=== PATIENT | male | born 1985 | race Caucasian/White ===

== ENCOUNTER 2019-07-30 10:20 | Emergency (ER) | payer OTHER, SELFPAY ==
[2019-07-30 10:33] VITALS: BP 148/89; PULSE 83; RESP 16; TEMP 36.9; O2SAT 99
--- NOTE | 2019-07-30 10:55 | DI.RAD.S_ITS ---
PROCEDURE: XR FINGER LT MIN 2V INDICATIONS: crush injury to 3rd digit TECHNIQUE: AP hand, 2 views of the middle finger(s) acquired. COMPARISON: None. FINDINGS: Bones: No displaced fracture or dislocation is identified involving the osseous structures of the left 3rd digit. Soft tissues: No suspicious soft tissue calcifications. Soft tissue swelling about the distal aspect of the 3rd left digit is evident. IMPRESSION: No displaced fractures of the left 3rd digit. Dictated by: Ricky Braga M.D. on 07/30/2019 at 10:10 Approved by: Ricky Braga M.D. on 07/30/2019 at 10:10
[2019-07-30] MEDS: LIDO 1%/SOD BICARB 8.4% (10ML) 10 ML SYRINGE INJ (11:56)
[2019-07-30] MEDS: OXYCODONE/ACETAMINOPHEN 5/325 TABLET 1 TAB PO (11:56)
[2019-07-30] MEDS: BACITRACIN OINT 0.9 GM PCKT 1 APPLIC TOP (11:56)
[2019-07-30] MEDS: IBUPROFEN 400 MG TABLET PO (11:56)
--- NOTE | 2019-07-30 12:57 | ED_ITS ---
HPI - Extremity Injury (Upper) <LANA Emerson - Last Filed: 07/30/19 14:38> General Chief Complaint: Extremity Injury, Upper Stated Complaint: left middle index finger at work Time Seen by Provider: 07/30/19 11:00 Source: patient Mode of arrival: Ambulatory Limitations: no limitations History of Present Illness HPI narrative: This is a right dominant hand 34-year-old male, smoker, who presents to ED after his left 3rd finger pain and swelling after it was crushed by >100 Lbs metal off 12 ft above the ground when lost degree of the metal around at 9:30 a.m. There is no active bleeding at this time. Patient reports slightly numbness on affected finger tip. Patient reports pain increases with movement such as flexion of affected finger and when it is touched. Tetanus immunization was updated last and 5 years ago. Related Data Previous Rx's Medication Instructions Recorded hydrocodone-acetaminophen [[place]] 1 tab PO Q8H PRN #10 tab 07/30/19 Allergies Allergy/AdvReac Type Severity Reaction Status Date / Time No Known Drug Allergies Allergy Verified 07/30/19 10:36 Review of Systems <LANA Emerson - Last Filed: 07/30/19 14:38> Review of Systems Narrative: General: Denies fever, chills, fatigue, malaise, sweats. HEENT: Denies sinus pain, ear pain, sore throat, difficulty swallowing, dizziness. Respiratory: Denies dyspnea, cough, wheezing, hemoptysis, sputum. Cardiovascular: Denies chest pain, palpitations, orthopnea, edema. Gastrointestinal: Denies nausea, vomiting, abdominal pain, diarrhea, constipation, melena. : Denies dysuria, frequency, incontinence, hematuria, urinary retention. Musculoskeletal: See HPI Skin: Laceration to L 3rd finger. Neurologic: Denies weakness, headache, numbness, change in speech, confusion, seizures, incoordination. Psychiatric: No concerning psychosocial issues. 12-point review of systems is negative except for those stated above. Patient History <LANA Emerson - Last Filed: 07/30/19 14:38> Medical History No significant past medical history (Acute) Surgical History No pertinent past surgical history (Acute) Social History Smoking Status: Current every day smoker Smoking Status: Current every day smoker alcohol intake frequency: 0-2 drinks per day Substance Use Type: does not use Exam <LANA Emerson - Last Filed: 07/30/19 14:38> Narrative Exam Narrative: General appearance: well developed, well nourished, in no acute distress. Head: normocephalic, atraumatic, no scalp lesions, non-tender. Neck/Thyroid: neck supple, full range of motion, no visible masses or meningeal signs. No JVD, non-tender without lymphadenopathy. Skin: superfical about 1 cm laceration above the L 3rd distal phalange near nail bed. No active bleeding. Warm and dry and appropriate color for ethnicity. Heart: no clubbing, no cyanosis, no edema. Lungs: Breathing even and unlabored. No stridor. No accessory muscles used. Able to speak in full sentences. Chest: normal shape and expansion. Abdomen: non-obese, non-distended. Neurologic: alert and oriented. Cognitive exam, [employer] and PNS grossly intact on informal exam. Psych: good eye contact, normal affect. Initial Vital Signs Initial Vital Signs: Vital Signs Temperature 98.4 F 07/30/19 10:33 Pulse Rate 83 07/30/19 10:33 Respiratory Rate 16 07/30/19 10:33 Blood Pressure 148/89 H 07/30/19 10:33 Pulse Oximetry 99 07/30/19 10:33 Extrem Right upper extremity: hand (3rd distal finger) Details: abnormal to inspection, neuromotor exam normal Details: wrist extension normal, neurosensory exam normal, tendon exam normal, tenderness Location: of the 3rd digit Location: at the distal phalanx, vascular exam Details: radial pulse present, abnormal ROM of finger (able to flex and extend 3rd distal finger) Details: pain with active ROM and pain with passive ROM, swelling Location: of the 3rd digit Location: at the distal phalanx, laceration (superficial laceration near 3rd finger bed) and ecchymosis; no crepitus <Essie Cui DO - Last Filed: 07/30/19 18:23> Initial Vital Signs Initial Vital Signs: Vital Signs Temperature 98.4 F 07/30/19 10:33 Pulse Rate 83 07/30/19 10:33 Respiratory Rate 16 07/30/19 10:33 Blood Pressure 148/89 H 07/30/19 10:33 Pulse Oximetry 99 07/30/19 10:33 Procedures <LANA Emerson - Last Filed: 07/30/19 14:38> Laceration Repair Laceration 1: Site: upper extremity (3rd distal finger) Side (If applicable): left Size (cm): 1 Description: linear Local Anesthetic: lidocaine 1% and with bicarb Amount of anesthesia used (mL): 2 Skin layer closed with: steri-strips Orthopedic Splinting/Casting Injury #1: Side: left Upper Extremity Injury Location: finger Upper Extremity Immobilizer: aluminum form splint Post splinting vascular exam: intact Placed by: Nursing Scores <KAY EmersonP - Last Filed: 07/30/19 14:38> GCS Felicity coma scale eye opening: Spontaneous Felicity coma scale verbal response: Orientated Marcell coma scale motor response: Obey commands Marcell coma scale total score: 15 Course <LANA Emerson - Last Filed: 07/30/19 14:38> Orders Ordered: ED Orders 07/30/19 10:55 XR finger LT min 2V Stat Discontinued Medications Bacitracin (Bacitracin) 1 applic TOP NOW ONE Stop: 07/30/19 11:21 Last Admin: 07/30/19 11:56 Dose: 1 applic Documented by: TIFFANI Ibuprofen (Advil) 400 mg PO NOW ONE Stop: 07/30/19 11:21 Last Admin: 07/30/19 11:56 Dose: 400 mg Documented by: TIFFANI Lidocaine/Sodium Bicarbonate (Buffered Lidocaine 10 Ml Syr) 10 ml INJ NOW ONE Stop: 07/30/19 11:21 Last Admin: 07/30/19 11:56 Dose: 10 ml Documented by: TIFFANI Oxycodone/Acetaminophen (Percocet 5/325) 1 tab PO NOW ONE Stop: 07/30/19 11:21 Last Admin: 07/30/19 11:56 Dose: 1 tab Documented by: TIFFANI Vital Signs Vital signs: Vital Signs - 8 hr 07/30/19 10:33 07/30/19 13:14 Temperature 98.4 F Pulse Rate 83 81 Respiratory Rate 16 17 Blood Pressure 148/89 H Blood Pressure [Left Arm] 139/86 Pulse Oximetry 99 100 <DO ePr Sánchez Last Filed: 07/30/19 18:23> Orders Ordered: ED Orders 07/30/19 10:55 XR finger LT min 2V Stat Discontinued Medications Bacitracin (Bacitracin) 1 applic TOP NOW ONE Stop: 07/30/19 11:21 Last Admin: 07/30/19 11:56 Dose: 1 applic Documented by: TIFFANI Ibuprofen (Advil) 400 mg PO NOW ONE Stop: 07/30/19 11:21 Last Admin: 07/30/19 11:56 Dose: 400 mg Documented by: TIFFANI Lidocaine/Sodium Bicarbonate (Buffered Lidocaine 10 Ml Syr) 10 ml INJ NOW ONE Stop: 07/30/19 11:21 Last Admin: 07/30/19 11:56 Dose: 10 ml Documented by: TIFFANI Oxycodone/Acetaminophen (Percocet 5/325) 1 tab PO NOW ONE Stop: 07/30/19 11:21 Last Admin: 07/30/19 11:56 Dose: 1 tab Documented by: TIFFANI Vital Signs Vital signs: Vital Signs - 8 hr 07/30/19 10:33 07/30/19 13:14 Temperature 98.4 F Pulse Rate 83 81 Respiratory Rate 16 17 Blood Pressure 148/89 H Blood Pressure [Left Arm] 139/86 Pulse Oximetry 99 100 MDM - Extremity Injury (Upper) <LANA Emerson - Last Filed: 07/30/19 14:38> Differential Diagnosis Differential diagnosis: Likely other (Finger fracture, fingers contusion, laceration) Medical Records Attestation: I reviewed the patient's medical records. Imaging Data XR-Finger LT: Radiologist's Impression: [address] [address] XRay Report Signed Patient: Fabian Pena#: [id number] : 1985Acct:[id number] Age/Sex: 34 / MDate of Service: 07/30/19 Loc: ED Accession Number: [id number] Procedure: XR finger LT min 2V Ordering Provider: Essie Cui D.O. PROCEDURE: XR FINGER LT MIN 2V INDICATIONS: crush injury to 3rd digit TECHNIQUE: AP hand, 2 views of the middle finger(s) acquired. COMPARISON: None. FINDINGS: Bones: No displaced fracture or dislocation is identified involving the osseous structures of the left 3rd digit. Soft tissues: No suspicious soft tissue calcifications. Soft tissue swelling about the distal aspect of the 3rd left digit is evident. IMPRESSION: No displaced fractures of the left 3rd digit. Dictated by: Ricky Braga M.D. on 07/30/2019 at 10:10 Approved by: Ricky Braga M.D. on 07/30/2019 at 10:10 [facility] Narrative Medical decision making narrative: This is a 34-year-old male who injured non dominant, left 3rd distal finger from crush injury by a heavy metal. Patient was able to distinguish doll and sharp sensation. Patient was able to flex and extend his finger but with discomfort. Third distal phalange has moderate swelling and bruise. Trephination was attempted on affected finger but no blood returned from the nail. Patient's finger was numbed by digital block in anticipation of laceration repair. When the wound was cleaned well, laceration was not deep and limited to superficial and repaired by Steri-Strips. Please see procedure note for laceration repair with steri-strips. Affected finger was dressed and placed on finger splint to protect Steri-Strips. Patient advised RICE therapy. Discharged to home with few tabs of [place] for severe pain and patient advised to use Tylenol and or Motrin for baseline pain management. Return precautions were discussed with the patient including signs and symptoms for infection and advised to follow with PCP. L&I documentation has been completed and patient was provided with copy. Patient verbalized understanding and agrees with the treatment plan. Discharge Plan Departure Patient Disposition: Home Clinical Impression: Superficial laceration Contusion of finger, left Qualifiers: Encounter type: initial encounter Finger: middle finger Damage to nail status: without damage Qualified Code(s): S60.032A - Contusion of left middle finger without damage to nail, initial encounter Discharge Date/Time: 07/30/19 13:23 Instructions: DI for Laceration Repair Steri-Strips, DI for Contusion Activity Restrictions/Additional Instructions: You have been diagnosed with [left middle finger distal phalange contusion and hematoma and superficial laceration which did not required suture. Attempted trephination was attempted on a nail and superficial laceration has been repaired with Steri-Strips and stabilized on a finger splint. Does not show fracture about soft tissue swelling.]. What to do: *Take your medications as directed. You can take Tylenol 650 mg up to 4 times a day as needed and ibuprofen 400-600 mg 3 times a day as needed for discomfort. Please take [place] only for severe pain since this is a narcotic medication and may cause drowsiness. Please do not drive, drink alcohol, or operate heavy equipments while your on this medication. Please elevate affected finger above chest level during rest and use ice pack for next 2-3 days frequently. Please keep the area clean dry and intact until the injury heals and do not soak in water. Please use finger splint to prevent Steri-Strips opens up. *Follow up with your primary care provider in 2-3 days, call for an appointment. I included [facility] information for PCP, give them a call to set up primary care. Let them know you were seen in the ED and that we asked you to be seen in follow up. *Return to ED if you have any new, worsening, or concerning symptoms, such as [chest pain, breathing difficulty, severe pain, unable to tolerate medication or signs of infection such as spreading redness, warmth, purulent discharge or any other concerns]. Prescriptions: New hydrocodone-acetaminophen [[place]] 5-325 mg tablet 1 tab PO Q8H PRN (Reason: pain) Qty: 10 RF: 0 Referrals: [facility] [Provider Group] Stand Alone Forms: Work Release Note
[2019-07-30 13:14] VITALS: BP 139/86; PULSE 81; RESP 17; O2SAT 100
== END 2019-07-30 13:23 | disposition home or self-care (01) ==
PROVIDERS: Emergency Provider Nurse Practitioner Family
DX: S61.213A Laceration without foreign body of left middle finger without damage to nail, initial encounter (principal); S60.032A Contusion of left middle finger without damage to nail, initial encounter; W22.8XXA Striking against or struck by other objects, initial encounter
CPT/HCPCS: 73140; 99283; 99284

== ENCOUNTER 2020-11-13 19:47 | Emergency (ER) | payer OTHER, SELFPAY ==
--- NOTE | 2020-11-13 19:48 | DI.RAD.S_ITS ---
PROCEDURE: XR CHEST 2V INDICATIONS: cough, SOB, fatigue TECHNIQUE: 2 views of the chest were acquired. COMPARISON: None. FINDINGS: Surgical changes and devices: None. Lungs and pleura: Lungs are clear. No pleural effusions or pneumothorax. Mediastinum: Mediastinal contours are normal. Heart size is normal. Bones and chest wall: No suspicious bony abnormalities. Soft tissues appear unremarkable. IMPRESSION: No acute cardiopulmonary abnormalities or focal airspace disease. Dictated by: Tom Mcneil M.D. on 11/13/2020 at 20:57 Approved by: Tom Mcneil M.D. on 11/13/2020 at 20:57
[2020-11-13 19:59] VITALS: BP 126/96; PULSE 91; RESP 22; TEMP 36.5; O2SAT 100; BMI 22.3
[2020-11-13 20:32] LABS: COVID19 -Nasal RAPID Negative (Negative)
--- NOTE | 2020-11-13 20:35 | ED.URI ---
HPI - URI/Sore Throat General Chief Complaint: Upper Respiratory Symptoms Stated Complaint: not feeling good, winded easily Time Seen by Provider: 11/13/20 19:48 Source: patient Mode of arrival: Ambulatory Limitations: no limitations History of Present Illness HPI Narrative: 35-year-old male daily smoker with non contributory medical history presents with a chief complaint of 5 days of runny nose, sneezing, nasal congestion, sore throat, cough and fatigue presents for evaluation. He recently flew home from [place] and started feeling ill soon thereafter. He has a vague headache that has gradually worsened but no visual disturbance or other neurologic symptoms such as trouble with speech or focal neurologic findings. He has had no fever and denies any neck pain. He has no chest pain or hemoptysis. He feels a bit fatigued but denies any significant shortness of breath. He has been nauseated but denies any vomiting, diarrhea or urinary complaints such as dysuria, frequency or urgency. He denies any exposure to persons known to have COVID MD Complaint: cough, sore throat, rhinorrhea and nasal congestion Onset (ago): day(s) Duration: constant Severity: moderate Relieving factors: nothing Exacerbating factors: nothing Description of mucous: clear Able to tolerate fluids by mouth: Yes Context: recent travel Treatments prior to arrival: none Related Data Previous Rx's Medication Instructions Recorded hydrocodone-acetaminophen [[place]] 1 tab PO Q8H PRN #10 tab 07/30/19 Allergies Allergy/AdvReac Type Severity Reaction Status Date / Time No Known Drug Allergies Allergy Verified 08/12/19 14:04 Review of Systems Constitutional Constitutional: Reports body ache(s), Reports chills, Reports fatigue, Denies fever(s), Denies frequent falls, Denies lethargy and Denies weakness Eyes Eyes: Denies change in vision, Denies eye discharge, Denies irritation and Denies loss of vision ENT Ears, Nose, Mouth, and Throat: Denies change in voice, Denies dizziness, Reports nasal congestion, Reports nasal discharge, Denies neck pain, Reports sore throat and Denies throat swelling Cardiovascular Cardiovascular: Denies chest pain, Denies irregular heart rhythm, Denies lightheadedness, Denies palpitations, Reports dyspnea, Denies dyspnea on exertion and Denies orthopnea Respiratory Respiratory: Reports cough, Reports dyspnea, Denies dyspnea on exertion and Denies wheezing Gastrointestinal Gastrointestinal: Denies abdominal pain, Denies change in bowel habits, Denies diarrhea, Denies nausea and Denies vomiting Musculoskeletal Musculoskeletal: Denies neck pain and Denies numbness Integumentary/Breasts Skin/Breast: Denies pruritus, Denies erythema, Denies rash and Denies wounds Neurologic Neurologic: Denies behavioral changes, Denies confusion, Denies dizziness, Denies frequent falls, Denies loss of vision, Denies numbness and Denies weakness Psychiatric Psychiatric: Denies anxiety, Denies behavioral changes, Denies confusion, Denies depression, Denies homicidal ideation and Denies suicidal ideation Endocrine Endocrine: Reports fatigue, Denies flushing and Denies palpitations Hematologic/Lymphatic Hematologic/Lymphatic: Denies easy bruising Allergic/Immunologic Allergic/Immunologic: Denies urticaria, Denies throat swelling and Denies wheezing Patient History Medical History No significant past medical history Surgical History No pertinent past surgical history Social History Smoking Status: Current every day smoker Smoking Status: Current every day smoker tobacco type: vaping alcohol intake frequency: 0-2 drinks per day Substance Use Type: marijuana Exam Narrative Exam Narrative: GENERAL: [35] year old patient appears stated age. Well-nourished, well-developed patient, in mild distress. HEAD: Atraumatic. Normocephalic. EYES: Pupils equal round and reactive. Extraocular motions intact. No scleral icterus. No injection or drainage. ENT: Nose without bleeding, though there is clear drainage bilateral nares with clear posterior nasal drip. Throat without erythema, tonsillar hypertrophy or exudate. Airway patent. NECK: Trachea midline. Non tender CARDIOVASCULAR: Regular rate and rhythm without murmurs, gallops, or rubs. RESPIRATORY: Clear to auscultation. Breath sounds equal bilaterally. No wheezes, rales, or rhonchi. GASTROINTESTINAL: Abdomen soft, non-tender, nondistended. EXTREMITIES: No edema or joint tenderness. BACK: Nontender without deformity or crepitance. No flank tenderness. NEURO: AOx3. SKIN: No rash or erythema of visible areas Initial Vital Signs Initial Vital Signs: Vital Signs Temperature 97.7 F 11/13/20 19:59 Pulse Rate 91 H 11/13/20 19:59 Respiratory Rate 22 11/13/20 19:59 Blood Pressure 126/96 H 11/13/20 19:59 Pulse Oximetry 100 11/13/20 19:59 Course Orders Ordered: ED Orders 11/13/20 19:48 XR chest 2V Stat 11/13/20 19:55 COVID19 -Nasal swab/Pre-Proc Stat Vital Signs Vital signs: Vital Signs - 8 hr 11/13/20 19:59 11/13/20 21:27 Temperature 97.7 F 97.9 F Pulse Rate 91 H 75 Respiratory Rate 22 16 Blood Pressure 126/96 H 131/81 Pulse Oximetry 100 99 MDM - URI/Sore Throat Lab Data Labs: Lab Results 11/13/20 Range/Units 19:55 SARS-CoV-2 (PCR) Negative (Negative) Imaging Data Chest x-ray: Radiologist's Impression: [address] [id number] ReportSigned Patient: Arturo PenaMR#: [id number]: 1985Acct:[id number]/Sex: 35 / MDate of Service: 11/13/20Loc: EDAccession Number: [id number] Procedure: XR chest 2V Ordering Provider: Archie Hdz D.O. PROCEDURE: XR CHEST 2V INDICATIONS: cough, SOB, fatigue TECHNIQUE: 2 views of the chest were acquired. COMPARISON: None. FINDINGS: Surgical changes and devices: None. Lungs and pleura: Lungs are clear. No pleural effusions or pneumothorax. Mediastinum: Mediastinal contours are normal. Heart size is normal. Bones and chest wall: No suspicious bony abnormalities. Soft tissues appear unremarkable. IMPRESSION: No acute cardiopulmonary abnormalities or focal airspace disease. Dictated by: Tom Mcneil M.D. on 11/13/2020 at 20:57 Approved by: Tom Mcneil M.D. on 11/13/2020 at 20:57 Discharge Plan Departure Patient Disposition: Home Clinical Impression: Upper respiratory infection Qualifiers: URI type: unspecified viral URI Qualified Code(s): J06.9 - Acute upper respiratory infection, unspecified Instructions: DI for Viral Upper Respiratory Infection -- Adult Activity Restrictions/Additional Instructions: *You have been diagnosed with [viral upper respiratory infection, the combination of your symptoms, physical exam, vital signs and chest x-ray are very reassuring. Your COVID swab was negative] *What to do: *Please consider an [id number] cough cold and flu medication that includes an antihistamine and decongestant as this will likely help her symptoms over the next few days *Please follow up with your primary care provider in 2-3 days, call for an appointment. Let them know you were seen in the Emergency Department and that we ask that you be seen in follow up. We will electronically transmit a record of today's note if your PCP is in our system *If you do not have a primary care provider please contact the [facility] Resource line at [phone]. They will ask some questions about your medical history and help get you set up with a doctor in the community. *Return to Emergency Department if you should have any new, worsening or concerning symptoms, such as [fever greater than 101 F, shaking chills, worsening pain, persistent vomiting or other bothersome symptoms] Prescriptions: No Action hydrocodone-acetaminophen [[place]] 5-325 mg tablet 1 tab PO Q8H PRN (Reason: pain) Qty: 10 RF: 0 Referrals: [facility] [Outside]
[2020-11-13 21:27] VITALS: BP 131/81; PULSE 75; RESP 16; TEMP 36.6; O2SAT 99
== END 2020-11-13 21:28 | disposition home or self-care (01) ==
PROVIDERS: Emergency Provider Emergency Medicine
DX: J06.9 Acute upper respiratory infection, unspecified (principal); Z20.822 Contact with and (suspected) exposure to COVID-19
CPT/HCPCS: 71046; 87635; 99281; 99283; C9803